=== PATIENT | female | born 1985 | race Caucasian/White ===

== ENCOUNTER 2016-10-31 14:38 | Inpatient (IN) | payer BC ==
[~2016-10-31] VITALS: Ht 157.6 cm; Wt 64.5 kg
[~2016-10-31 14:38] MED LIST: COLACE 100100 MG/CAP PO; DOS; MAGNESIUM250 M1 PO; MOTRIN 600600 MG/TAB PO; PRENATAL1 TA1; Ultram PO; [UNRECOGNIZED DRUG - OTHER]
[2016-12-09] VITALS (18 sets, daily range): BP systolic 92–123; BP diastolic 42–71; PULSE 62–84; TEMP 97–98.5
[2016-12-09 09:17] LABS: BASO % 0.2 % (0.0-2.0); EOS # 0.1 (0.0-0.7); EOS % 0.7 % (0-4.0); GRAN # 6.4 (1.4-6.5); GRAN % 75.9 % (42.2-75.2); LYMPH # 1.4 (1.2-3.4); LYMPH % 16.8 % (20.0-51.0); MEAN CELL VOLUME 95 fl (80.0-100.0); MEAN CORPUSCULAR HEMOGLOBIN 31 pg (27.0-31.0); MEAN CORPUSCULAR HGB CONC 33 g/dl (33.0-37.0); MEAN PLATELET VOLUME 10.8 fl (7.4-10.4); MONO # 0.5 (0.1-0.6); MONO % 5.8 % (1.7-9.3); PLATELET COUNT 188 K/mm3 (130-400); RED BLOOD COUNT 3.83 M/mm3 (4.10-5.30); REDCELL DISTRIBUTION WIDTH-CV 12.7 % (11.5-14.5); WHITE BLOOD COUNT 8.4 K/mm3 (4.8-10.8)
[2016-12-09 09:20] LABS: HEMATOCRIT 36.4 % (37.0-47.0)
[2016-12-10 03:15] VITALS: BP 95/65; PULSE 67; TEMP 97.2
[2016-12-10 07:00] VITALS: BP 93/49; PULSE 72; TEMP 97.5
[2016-12-10 09:07] LABS: HEMATOCRIT 31.2 % (37.0-47.0); HEMOGLOBIN 10.3 g/dl (12.5-16.0)
[2016-12-10 16:08] VITALS: BP 102/61; PULSE 66; TEMP 97.6
[2016-12-10 21:20] VITALS: BP 96/58; PULSE 68; TEMP 97.8
[2016-12-11 07:40] VITALS: BP 107/62; PULSE 76; TEMP 98.2
[2016-12-11] MEDS ORDERED: IBU600 MG PO (08:54)
[2016-12-11] MEDS ORDERED: ULTRAM 50MG TAB50 MG PO (08:54)
== END 2016-12-11 16:40 | disposition home or self-care (01) | DRG 766 ==
LOC: LDR 12-09 07:02 → OB 12-09 08:13 → EDSTATUS 12-17 07:01 → LDRO 12-17 14:36
PROVIDERS: Obstetrics & Gynecology
PROC: 10D00Z1 Extraction of Products of Conception, Low, Open Approach (ICD-10-PCS; principal; 2016-12-09)
DX: O34.211 Maternal care for low transverse scar from previous cesarean delivery (principal); O69.81X0 Labor and delivery complicated by cord around neck, without compression, not applicable or unspecified; N85.8 Other specified noninflammatory disorders of uterus; O99.824 Streptococcus B carrier state complicating childbirth; Z3A.39 39 weeks gestation of pregnancy; Z37.0 Single live birth
CPT/HCPCS: J0690; J1885; J2270; J2370; J2405; J2590; J7120

== ENCOUNTER → 2018-08-18 | Outpatient (CLI) | payer BC ==
[~2018-08-18] MED LIST changes: +IBU600 MG PO; +ULTRAM 50MG TAB50 MG PO
== END ==
LOC: COL.LAB 11:40
DX: Z32.00 Encounter for pregnancy test, result unknown (principal)

== ENCOUNTER 2018-11-26 15:40 | Emergency (ER) | payer BC ==
[~2018-11-26] VITALS: Ht 154.9 cm; Wt 54.5 kg
[~2018-11-26 15:40] MED LIST changes: +ATARAX 25MG25 MG/TAB PO; +ATIVAN 0.50.5 MG/TAB PO; +CLEOCIN HCL300 MG PO; +FLAGYL500 MG PO; +NORCO 325 MG-51 TAB PO; +PERCOCET 325 MG1 TA2 PO; +ZOLOFT 50MG50 MG PO
[2018-11-26 15:44] VITALS: BP 132/80; TEMP 98.9
[2018-11-26 18:00] VITALS: PULSE 88
== END 2018-11-26 17:58 | disposition home or self-care (01) ==
LOC: COL.ER 15:40
DX: K08.89 Other specified disorders of teeth and supporting structures (principal)
CPT/HCPCS: J1170; J1885

== ENCOUNTER → 2019-09-27 | Outpatient (CLI) | payer BC ==
[~2019-09-27] VITALS: Ht 154.9 cm; Wt 56.7 kg
[~2019-09-27] MED LIST changes: +PRENATAL VITAMI1 TA3 PO
[2019-09-27 15:15] VITALS: BP 110/64; PULSE 72; TEMP 98.4
[2019-09-27 15:38] LABS: ALBUMIN 3.9 gm/dL (3.5-5.0); BILIRUBIN,TOTAL 0.2 mg/dL (0.0-1.0); CALCIUM 8.5 mg/dL (8.4-10.2); CREATININE, serum 0.46 (0.52-1.25); POTASSIUM 3.4 mmol/L (3.4-5.0); TOTAL PROTEIN 6.9 gm/dL (6.4-8.2)
== END ==
LOC: EUO 14:43
PROVIDERS: Obstetrics & Gynecology
DX: O21.0 Mild hyperemesis gravidarum (principal); Z3A.13 13 weeks gestation of pregnancy
CPT/HCPCS: J2405; J7030; J7040

== ENCOUNTER → 2020-03-14 | Outpatient (CLI) | payer BC | LOC: ZCOL.LAB 08:30 | DX: Z20.828 Contact with and (suspected) exposure to other viral communicable diseases (principal) ==

== ENCOUNTER 2020-03-20 05:35 | Inpatient (IN) | payer BC ==
[2020-03-20] VITALS (16 sets, daily range): BP systolic 95–115; BP diastolic 51–80; PULSE 62–100; TEMP 98–98.4
[~2020-03-20] VITALS: Ht 155 cm; Wt 58.2 kg
[2020-03-20] MEDS ORDERED: MAGNESIUM250 M1 PO (09:17)
[2020-03-20 09:57] LABS: BASO % 0.1 % (0.0-2.0); EOS # 0.1 (0.0-0.7); EOS % 0.8 % (0-4.0); GRAN # 5.9 (1.4-6.5); GRAN % 74.3 % (42.2-75.2); HEMATOCRIT 37.4 % (37.0-47.0); HEMOGLOBIN 12.4 g/dl (12.5-16.0); LYMPH # 1.4 (1.2-3.4); LYMPH % 17.8 % (20.0-51.0); MEAN CELL VOLUME 93 fl (80.0-100.0); MEAN CORPUSCULAR HEMOGLOBIN 31 pg (27.0-31.0); MEAN CORPUSCULAR HGB CONC 33 g/dl (33.0-37.0); MEAN PLATELET VOLUME 10.8 fl (7.4-10.4); MONO # 0.5 (0.1-0.6); MONO % 6.5 % (1.7-9.3); PLATELET COUNT 196 K/mm3 (130-400); RED BLOOD COUNT 4.03 M/mm3 (4.10-5.30); REDCELL DISTRIBUTION WIDTH-CV 13.1 % (11.5-14.5)
[2020-03-20] MEDS ORDERED: ZOLOFT 50MG50 MG PO (10:01)
[2020-03-20] MEDS ORDERED: FIBER GUMMIES2.5 GM PO (10:02)
--- NOTE | 2020-03-20 10:35 | NUR ---
0918 - Pt and spouse arrive ambulatory to unit for scheduled repeat . Pt changed into gown and positions self on bed. EFM explained and placed, vitals taken. Pt denies leaking of fluid and vaginal bleeding, reports good movement and frequent contractions. IV started in right hand, labs drawn, LR started per protocol. Assessment complete, consents explained and signed. Pt positioned for comfort.
--- NOTE | 2020-03-20 17:48 | NUR ---
Pt up to restroom with standby assist by this RN. Acosta removed. IV to INT. Mesh underwear, new pad, pericare provided. Bed pad changed. Pt put on own clothing. Pt tolerated ambulating well.
[2020-03-21 00:56] VITALS: BP 103/72; PULSE 67; TEMP 97.6
[2020-03-21 03:16] VITALS: BP 119/66; PULSE 78; TEMP 97.7
[2020-03-21 07:02] LABS: HEMOGLOBIN 10.9 g/dl (12.5-16.0)
[2020-03-21 07:15] VITALS: BP 102/61; PULSE 65; TEMP 97.8
[2020-03-21 07:15] LABS: HEMATOCRIT 33.3 % (37.0-47.0)
--- NOTE | 2020-03-21 09:44 | NUR ---
Initial visit; Patient thanked Balance Sheet Analyst for offering congratulations and God's blessings for the of her son. Balance Sheet Analyst thanked Mom for choosing [facility].
[2020-03-21 12:25] VITALS: BP 97/68; PULSE 67
[2020-03-21 16:31] VITALS: BP 99/61; PULSE 65; TEMP 97.4
[2020-03-21 19:15] VITALS: BP 107/70; PULSE 77; TEMP 98.8
--- NOTE | 2020-03-22 07:36 | NUR ---
Pt refused bedside report. Report received from off going RNOmer. Care taken over by this RN.
[2020-03-22 07:42] VITALS: BP 110/58; PULSE 73; TEMP 98.4
[2020-03-22] MEDS ORDERED: ULTRAM 50MG TAB50 MG PO (08:55)
[2020-03-22] MEDS ORDERED: IBU600 MG PO (08:55)
== END 2020-03-22 14:45 | disposition home or self-care (01) | DRG 788 ==
LOC: OB 05:35
PROVIDERS: ADMIT Obstetrics & Gynecology
PROC: 10D00Z1 Extraction of Products of Conception, Low, Open Approach (ICD-10-PCS; principal; 2020-03-20)
DX: O34.211 Maternal care for low transverse scar from previous cesarean delivery (principal); O99.344 Other mental disorders complicating childbirth; F32.9 Major depressive disorder, single episode, unspecified; F41.9 Anxiety disorder, unspecified; O69.81X0 Labor and delivery complicated by cord around neck, without compression, not applicable or unspecified; Z3A.39 39 weeks gestation of pregnancy; Z37.0 Single live birth
CPT/HCPCS: J0690; J1100; J1885; J2370; J2405; J2590; J7120

== ENCOUNTER → 2020-09-15 | Outpatient (CLI) | payer BC ==
[~2020-09-15] MED LIST changes: +FIBER GUMMIES2.5 GM PO
== END ==
LOC: COL.RAD 07:08
DX: R10.9 Unspecified abdominal pain (principal)
CPT/HCPCS: Q9967